=== PATIENT | male | born 1960 | race Caucasian/White ===

== ENCOUNTER 2023-06-02 18:02 | Emergency (ER) | payer OTHER, SELFPAY ==
[2023-06-02 18:04] VITALS: BP 142/80; PULSE 90; RESP 20; TEMP 36.7; O2SAT 98; BMI 25.1
--- NOTE | 2023-06-02 18:04 | ED.GENADULT ---
HPI - General Adult General Chief complaint: Urogenital-Male Stated complaint: Catheter issues Time Seen by Provider: 06/02/23 18:33 Source: patient and family Mode of arrival: wheelchair Limitations: no limitations History of Present Illness HPI narrative: 62 yo male who was seen at [facility] today s/p Rezum procedure with Dr. Tirado. He was sent home with flomax, 18F brewster cath, azo, bactrim. He notes he has not been draining well at times and having bladder spasms. He hasn't drained in 2 hours. He seems worse when laying flat. He notes blood and small clots - bladder scan under 200 on arrival. is [employer] so they did try to adjust it and fix it at home as well as advance it. MD complaint: bladder spasm Onset (ago): hour(s) (several) Location: abdomen Radiation: non-radiation Severity: moderate Quality: crushing Pain Consistency: intermittent Relieving factors: none Exacerbating factors: medication and other (urination) Associated symptoms: other (hematuria) Treatments prior to arrival: other Related Data Previous Rx's Medication Instructions Recorded diazepam 5 mg tablet (Valium) 5 mg PO BID PRN muscle spasm #10 06/02/23 tabs Allergies Allergy/AdvReac Type Severity Reaction Status Date / Time No Known Allergies Allergy Verified 06/02/23 18:06 Review of Systems Review of Systems: Constitutional : No Weight loss, No Fever, No Chills ENT/Mouth : No sore throat, No Rhinorrhea Eyes: No Swelling, No Redness Cardiovascular : No Chest Pain, No SOB, NoEdema Respiratory : No Cough, No Sputum, No Wheezing Gastrointestinal : no Nausea, no Vomiting, no Diarrhea, positive abdominal Pain, No Hematochezia, No Melena Genitourinary : No Dysuria, No Urinary Frequency, pos Hematuria, No Urgency Musculoskeletal : No joint pain, No Myalgias, No Joint Swelling Skin : No Skin Lesions, No rash Neuro : No Weakness, No Numbness, No Dizziness, No Headache Psych : No Anxiety/Panic, No Depression All other systems reviewed and are negative. [facility] Past Medical History Attestation statement: The following information was validated with the patient. Medical History BPH (benign prostatic hyperplasia) Social History Social History Patient Tobacco Use Status: Never used Tobacco Advance Directives: Yes Advance Directives on File: No Physical Exam ED Vital Signs: Vital Signs - 24 hr 06/02/23 18:04 Temperature 98.0 F Pulse Rate 90 Respiratory Rate 20 Blood Pressure 142/80 H Pulse Oximetry 98 Oxygen Delivery Method Room Air BMI result Body Mass Index 25.1 Appearance: Alert. Oriented X3. No acute distress. Eyes: Pupils equal, round and reactive to light. ENT: Pharynx normal. Neck: Normal inspection. Neck supple. CVS: Normal heart rate and rhythm. Pulses normal. Respiratory: No respiratory distress. Breath sounds normal. Abdomen: Soft and nontender. : bloody drainage in brewster Skin: Skin warm and dry. Normal skin color. Normal skin turgor. Extremities: No lower extremity edema. No calf ttp Neuro: Oriented X 3. No motor deficit. No sensory deficit. Course Course Course Narrative: RME performed by Pamela De La Rosa PA-C. Patient is a 62 year old assigned male at presenting to the emergency department with blood in his urinary catheter after a Rezum procedure. Patient had a Rezum prostate procedure done at [facility] today. Was discharged home with a catheter in place. Now having blood and clots in his catheter with bladder spasms and pain. Labs ordered. Patient placed back in the waiting room pending room availability and results. Reevaluation(s) Reevaluation #1: brewster is draining after irrigation he is feeling much better at this time given urine will dose one time with ceftriaxone - and patient aware and agreeable Medications Administered Discontinued Medications Generic Name Dose Route Start Last Admin Trade Name Gurjit PRN Reason Stop Dose Admin Hydromorphone HCl 1 mg 06/02/23 18:34 06/02/23 18:56 Hydromorphone Hcl 1 Mg/Ml Syringe IVPUSH 06/02/23 18:35 1 mg ONCE ONE Administration Protocol Ondansetron HCl 4 mg 06/02/23 18:34 06/02/23 18:56 Ondansetron Hcl 4 Mg/2 Ml Vial IVPUSH 06/02/23 18:35 4 mg ONCE ONE Administration Medical Decision Making Medical Decision Making MDM Narrative: 62 yo male with BPH s/p rezum procedure now with bladder spasms - bladder scan under 200 at this time will give IV dilaudid for pain, IVF, labs, irrigate bladder. Possible clots, spasms, retention Differential Diagnosis Differential Diagnoses: The differential diagnosis associated with the presentation includes clots, spasms, retention Admission/Observation Consideration of admission/observation: Escalation of care including admission/observation considered not toxic, urine stable is on bactrim could be false pos from azo Lab Data MDM Lab Attestation statement: I reviewed the patient's lab results. 06/02/23 18:53 06/02/23 18:53 Labs: Lab Results 06/02/23 06/02/23 Range/Units 18:53 19:10 WBC 9.6 (4.8-10.8) X10*3/uL RBC 4.39 L (4.60-5.80) X10*6/uL Hgb 13.4 L (14.0-18.0) g/dl Hct 38.4 L (42.0-52.0) % MCV 87.5 (80.0-98.0) fL MCH 30.5 (27.0-33.0) pg MCHC 34.9 (31.0-36.0) g/dl RDW 12.1 (11.0-16.0) % Plt Count 183 (160-400) X10*3/uL MPV 11.1 (9.4-12.4) fL Immature Gran % (Auto) 1.1 H (0.0-0.4) % Neut % (Auto) 82.7 H (45-73) % Lymph % (Auto) 3.4 L (20-40) % [place] % (Auto) 12.1 H (2-11) % Eos % (Auto) 0.3 (0-4) % Baso % (Auto) 0.4 (0-2) % Lymph # (Auto) 0.3 L (1.2-4.9) X10*3/uL [place] # (Auto) 1.2 (0.1-1.2) X10*3/uL Eos # (Auto) 0.0 (0.0-0.4) X10*3/uL Baso # (Auto) 0.0 (0.0-0.2) X10*3/uL Abs Immat Gran (auto) 0.11 H (0.00-0.03) X10*3/uL Absolute Neuts (auto) 7.9 (2.0-8.3) x10*3/uL Absolute Nucleated RBC 0.000 (0.0-0.012) X10*3/uL Nucleated RBC % (auto) 0.0 (0.0-0.2) /100WBC PT 15.8 H (11.1-13.3) SEC INR 1.3 H (0.9-1.1) APTT 31.6 (26.0-36.4) SEC Sodium 139 (135-145) mmol/L Potassium 3.7 (3.3-5.1) mmol/L Chloride 104 (96-108) mmol/L Carbon Dioxide 23 (22-29) mmol/L Anion Gap 16 (12-20) BUN 10 (9-16) mg/dL Creatinine 1.09 (0.5-1.4) mg/dL Estim Creat Clear Calc 69.7 Estimated GFR > 60 Random Glucose 102 (60-115) mg/dL Calcium 9.5 (8.4-10.2) mg/dL Magnesium 2.0 (1.6-2.6) mg/dL Total Bilirubin 0.4 (0.0-1.0) mg/dL AST 17 (5-37) U/L ALT 10 (0-40) U/L Alkaline Phosphatase 73 (39-117) U/L Total Protein 7.4 (6.5-8.0) g/dL Albumin 4.2 (3.5-5.0) g/dL Urine Color Other A Urine Appearance Turbid Urine pH 7.0 (5.0-9.0) Ur Specific [place] 1.010 (1.005-1.025) Urine Protein 300 (3+) H (Neg-Trace) mg/dL Urine Glucose (UA) 250 H (Negative) mg/dL Urine Ketones 40 (Negative) mg/dL Urine Blood Large (3+) H (Negative) Urine Nitrite Positive H (Negative) Ur Leukocyte Esterase Large (3+) H (Negative) Urine RBC >20 H (0-2) /HPF Urine WBC >50 H (0-5) /HPF Ur Squamous Epith Cells 0-2 (0-2) /HPF Urine Bacteria Trace (None Seen) Hyaline Casts 0-2 (0-2) /LPF Independent Historian Clinical information obtained from an independent historian. History obtained from or confirmed by: Spouse Prescription Management I considered prescription management with: Other Discharge Plan Discharge Clinical Impression: Complication, blocked Brewster catheter Qualifiers: Encounter type: initial encounter Qualified Code(s): T83.091A - Other mechanical complication of indwelling urethral catheter, initial encounter Hematuria Qualifiers: Hematuria type: gross Qualified Code(s): R31.0 - Gross hematuria Patient Disposition: Home, Self-Care Instructions: Brewster Catheter Placement and Care (ED), Hematuria (ED) Additional Instructions: return for fevers, vomiting, weakness, dizziness, catheter becomes blocked again. please follow up with your doctor as well. stay hydrated. Prescriptions: New diazepam [Valium] 5 mg tablet 5 mg PO BID PRN (Reason: muscle spasm) Qty: 10 0RF
[2023-06-02] MEDS: HYDROmorphone HCl 1 MG/ML SYRINGE IVPUSH (18:56)
[2023-06-02] MEDS: ondansetron HCL 4 MG/2 ML VIAL IVPUSH (18:56)
[2023-06-02 18:57] LABS: MANUAL DIFF FLAG NO
--- NOTE | 2023-06-02 19:02 | PC.NURSE ---
assumed care of pt
[2023-06-02 19:05] LABS: INTERNATIONAL NORM RATIO 1.3 (0.9-1.1); Prothrombin Time 15.8 SEC (11.1-13.3)
[2023-06-02 19:08] LABS: Partial Thromboplastin Time 31.6 SEC (26.0-36.4)
[2023-06-02 19:12] LABS: Basophils Percent Auto 0.4 % (0-2); Eosinophils Percent Auto 0.3 % (0-4); Hematocrit 38.4 % (42.0-52.0); Hemoglobin 13.4 g/dl (14.0-18.0); Imm Gran Abs Auto 0.11 X10*3/uL (0.00-0.03); Imm Gran Pct Auto 1.1 % (0.0-0.4); Lymphocytes Absolute Auto 0.3 X10*3/uL (1.2-4.9); Lymphocytes Percent Auto 3.4 % (20-40); Mean Corpuscular HGB Conc 34.9 g/dl (31.0-36.0); Mean Corpuscular Hemoglobin 30.5 pg (27.0-33.0); Mean Corpuscular Volume 87.5 fL (80.0-98.0); Mean Platelet Volume 11.1 fL (9.4-12.4); Monocytes Absolute Auto 1.2 X10*3/uL (0.1-1.2); Monocytes Percent Auto 12.1 % (2-11); Neutrophils Absolute Auto 7.9 x10*3/uL (2.0-8.3); Neutrophils Percent Auto 82.7 % (45-73); Platelet Count 183 X10*3/uL (160-400); Red Blood Count 4.39 X10*6/uL (4.60-5.80); Red Cell Distribution Width 12.1 % (11.0-16.0); White Blood Count 9.6 X10*3/uL (4.8-10.8)
[2023-06-02 19:15] LABS: Alanine Aminotransferase 10 U/L (0-40); Albumin Level 4.2 g/dL (3.5-5.0); Alkaline Phosphatase 73 U/L (39-117); Anion Gap 16 (12-20); Aspartate Amino Transferase 17 U/L (5-37); Bilirubin Total 0.4 mg/dL (0.0-1.0); Blood Urea Nitrogen 10 mg/dL (9-16); Calcium 9.5 mg/dL (8.4-10.2); Carbon Dioxide 23 mmol/L (22-29); Chloride 104 mmol/L (96-108); Creatinine Clr Calc Pharmacy 69.7; Estimated Glomerular Filt Rate > 60; Glucose Random 102 mg/dL (60-115); Potassium 3.7 mmol/L (3.3-5.1); Sodium 139 mmol/L (135-145); Total Protein 7.4 g/dL (6.5-8.0)
[2023-06-02 19:17] LABS: Appearance Urine Turbid; Color Urine Other; Glucose Urine UA 250 mg/dL (Negative); Leukocyte Esterase Urine Large (3+) (Negative); Nitrite Urine Positive (Negative); UMIC TRIGGER UACC YES; Urine Blood Large (3+) (Negative); Urine Ketones 40 mg/dL (Negative); Urine Protein 300 (3+) mg/dL (Neg-Trace)
[2023-06-02 19:47] LABS: Bacteria Urine Trace (None Seen); Hyaline Casts Urine 0-2 /LPF (0-2); RBC Urine >20 /HPF (0-2); Squamous Epithelial Cell Urine 0-2 /HPF (0-2); UACC Culture Trigger YES; WBC Urine >50 /HPF (0-5)
[2023-06-02] MEDS: cefTRIAXone sodium 1 GM in 0.9 % Sodium Chloride 50 ML IV (20:01)
== END 2023-06-02 20:38 | disposition home or self-care (01) ==
PROVIDERS: Physician Assistant Medical; Emergency Provider Emergency Medicine
DX: R31.0 Gross hematuria (principal); N32.89 Other specified disorders of bladder; Z79.899 Other long term (current) drug therapy
CPT/HCPCS: 36415; 80053; 81001; 83735; 85025; 85610; 85730; 87086; 96365; 96375; 99284; J0696; J1170; J2405